=== PATIENT | female | born 1970 | race Caucasian/White ===

== ENCOUNTER 2025-04-15 03:34 | Emergency (ER) | payer OTHER ==
[~2025-04-15] VITALS: Ht 172.7 cm; Wt 69.0 kg
[2025-04-15 03:36] VITALS: TEMP 36.7; O2SAT 98
[2025-04-15] MEDS: KETOROLAC 15MG/ML VIAL IV ONE (04:27)
[2025-04-15] MEDS: ONDANSETRON HCL 4MG/2ML INJ IV ONE ×2 (04:27→06:12)
[2025-04-15 04:41] LABS: HEMATOCRIT. 35.4 % (36.0-48.0); HEMOGLOBIN. 11.6 g/dL (12.0-16.0); MEAN CORPUSCULAR HEMOGLOBIN 32.1 pg (28.0-32.0); MEAN CORPUSCULAR HGB CONC 32.8 g/dL (31.0-37.0); MEAN PLATELET VOLUME 8.4 fl (7.4-10.4); PLATELET 120 x1000/uL (130-400); RED BLOOD CELL COUNT 3.61 mill/uL (4.2-5.4); RED CELL DISTRIBUTION WIDTH 19.9 % (11.6-14.6); WHITE BLOOD COUNT 7.4 x1000/uL (4.5-11.0)
[2025-04-15 04:42] LABS: DIFFERENTIAL COMMENT 1
[2025-04-15 04:52] LABS: INR 1.3; PROTHROMBIN TIME 13.9 sec (9.6-11.0)
[2025-04-15 04:54] LABS: CARBON DIOXIDE 20 mEq/L (21-32); CHLORIDE 99 mEq/L (98-107); SODIUM 134 mEq/L (136-145)
[2025-04-15 04:55] LABS: CALCIUM 9.5 mg/dL (8.7-10.4)
[2025-04-15 04:59] LABS: GLUCOSE 164 mg/dL (70-105)
[2025-04-15 05:00] LABS: ETHANOL BLOOD < 10 mg/dL (<10); UREA NITROGEN BLOOD 19 mg/dL (9-23)
[2025-04-15 05:01] LABS: ALANINE AMINOTRANSFERASE 21 IU/L (10-49); ALBUMIN 3.4 g/dL (3.2-4.8); ASPARTATE AMINOTRANSFERASE 79 IU/L (<34)
[2025-04-15 05:02] LABS: BILIRUBIN DIRECT 2.7 mg/dL (<=3.0); BILIRUBIN TOTAL 4.5 mg/dL (0.1-1.0); PHOSPHORUS 3.4 mg/dL (2.5-4.9); PROTEIN TOTAL 7.1 g/dL (6.0-8.3)
[2025-04-15] MEDS: MORPHINE SULFATE 4 MG/ML INJ (FOR IV/IM USE) IV ONE ×2 (05:06→06:12)
[2025-04-15 05:32] LABS: ANISOCYTOSIS 3+; PLATELET ESTIMATE NORMAL
[2025-04-15] MEDS ORDERED: ONDA4TAB50 MT (05:49)
[2025-04-15] MEDS ORDERED: IBUP-2029 MT (05:49)
[2025-04-15] MEDS ORDERED: ONDANSETRON HCL 4MG/2ML INJ IV ONE (06:00)
[2025-04-15 06:39] VITALS: BP 106/72; PULSE 99; RESP 12; O2SAT 100
== END 2025-04-15 06:42 | disposition home or self-care (01) ==
LOC: ER 03:34
DX: G89.29 Other chronic pain (principal); K74.60 Unspecified cirrhosis of liver; E11.9 Type 2 diabetes mellitus without complications
CPT/HCPCS: 80076; 80048; 80320; 83690; 83735; 84100; 85025; 85610; 36415; 74176; 96374; 96375; 96376; 99285; J1885; J2405; J2270; Z7610 ×4; A4606; G0480

== ENCOUNTER 2025-05-02 15:28 | Emergency (ER) | payer OTHER ==
[~2025-05-02] VITALS: Ht 172.7 cm; Wt 69.4 kg
[~2025-05-02 15:28] MED LIST: IBUP-2029 MT; ONDA4TAB50 MT
[2025-05-02 15:42] VITALS: O2SAT 99
[2025-05-02] MEDS: KETOROLAC 30MG/ML VIAL IV STA (16:16)
[2025-05-02] MEDS: SODIUM CHLORIDE 0.9% 1,000 ML IV ONE (17:09)
[2025-05-02 17:20] LABS: HEMATOCRIT. 33.5 % (36.0-48.0); HEMOGLOBIN. 11.0 g/dL (12.0-16.0); MEAN PLATELET VOLUME 9.2 fl (7.4-10.4); PLATELET 109 x1000/uL (130-400); RED BLOOD CELL COUNT 3.47 mill/uL (4.2-5.4); RED CELL DISTRIBUTION WIDTH 19.2 % (11.6-14.6)
[2025-05-02 17:30] LABS: CREATININE 1.2 mg/dL (0.6-1.0); UREA NITROGEN BLOOD 18.0 mg/dL (9-23)
[2025-05-02] MEDS: ONDANSETRON HCL 4MG/2ML INJ IV STA (17:30)
[2025-05-02] MEDS: MORPHINE SULFATE 4 MG/ML INJ (FOR IV/IM USE) IV STA (17:31)
[2025-05-02 17:44] LABS: EOSINOPHILS % MANUAL 1.0 % (0.0-5.0); LYMPHOCYTES % MANUAL 14.0 % (20.0-60.0); MONOCYTES % MANUAL 15.0 % (2.0-8.0); NEUTROPHILS % MANUAL 70.0 % (45.0-75.0); PLATELET ESTIMATE DECREASED
[2025-05-02] MEDS: DIPHENHYDRAMINE 50MG/ML VIAL IV ONE (18:13)
[2025-05-02 18:30] LABS: CLARITY URINE CLEAR (CLEAR); COLOR URINE DARK YELLOW (YELLOW); GLUCOSE URINE NEGATIVE (NEGATIVE); KETONES URINE TRACE (NEGATIVE); LEUKOCYTE ESTERASE URINE NEGATIVE (NEGATIVE); NITRITE URINE NEGATIVE (NEGATIVE); OCCULT BLOOD URINE NEGATIVE (NEGATIVE); PH URINE 5.5 (4.5-8.0); PROTEIN URINE TRACE (NEGATIVE); SPECIFIC GRAVITY URINE 1.029 (1.005-1.030); UROBILINOGEN URINE 1.0 E.U./dL (0.2-1.0)
[2025-05-02 18:32] LABS: INR 4.7
[2025-05-02 18:41] LABS: RBC URINE NONE SEEN /hpf (0-2); WBC URINE 0-2 /hpf (0-2)
[2025-05-02 18:42] LABS: BACTERIA URINE NONE SEEN; SQUAMOUS EPITHELIAL CELL URINE FEW /lpf (RARE/1+)
[2025-05-02 20:10] VITALS: BP 128/87; PULSE 124; RESP 18; TEMP 36.6; O2SAT 100
[2025-05-02 21:42] LABS: CREATININE 1.0 mg/dL (0.6-1.0); UREA NITROGEN BLOOD 15 mg/dL (9-23)
[2025-05-02 21:44] LABS: ASPARTATE AMINOTRANSFERASE 106 IU/L (<34); BILIRUBIN DIRECT 1.7 mg/dL (<=3.0); BILIRUBIN TOTAL 2.9 mg/dL (0.1-1.0); PROTEIN TOTAL 7.0 g/dL (6.0-8.3)
== END 2025-05-02 21:33 | disposition home or self-care (01) ==
LOC: ER 15:28
DX: D68.9 Coagulation defect, unspecified (principal); K74.60 Unspecified cirrhosis of liver; E11.9 Type 2 diabetes mellitus without complications; Z79.899 Other long term (current) drug therapy
CPT/HCPCS: 80076; 80048; 81003; 85025; 85610; 36415; 96361; 96374; 96375; 99285; J1200; J2405; J2270; J7030; Z7610 ×3; J1885